=== PATIENT | female | born 1980 | race Two or more races ===

== ENCOUNTER 2021-06-17 18:38 | Emergency (ER) | payer OTHER ==
[~2021-06-17] VITALS: Ht 154.9 cm; Wt 59.0 kg
[2021-06-17 19:59] VITALS: BP 114/58
== END 2021-06-17 20:00 | disposition home or self-care (01) ==
LOC: ER 18:40
DX: S02.5XXA Fracture of tooth (traumatic), initial encounter for closed fracture (principal); K04.7 Periapical abscess without sinus; F17.210 Nicotine dependence, cigarettes, uncomplicated; X58.XXXA Exposure to other specified factors, initial encounter; Y93.89 Activity, other specified; Y92.89 Other specified places as the place of occurrence of the external cause; Y99.8 Other external cause status

== ENCOUNTER 2022-09-27 09:02 | Emergency (ER) | payer MEDICAID ==
[~2022-09-27] VITALS: Ht 154.9 cm; Wt 69.1 kg
[2022-09-27 09:27] VITALS: BP 122/78
[2022-09-27] MEDS ORDERED: HYDROcodone-ACET 5/325MG TAB PO ONE (10:00)
[2022-09-27] MEDS ORDERED: IBUP800T27 PO (10:12)
== END 2022-09-27 10:23 | disposition home or self-care (01) ==
LOC: ER 09:02
DX: S82.831A Other fracture of upper and lower end of right fibula, initial encounter for closed fracture (principal); F17.210 Nicotine dependence, cigarettes, uncomplicated; Z79.1 Long term (current) use of non-steroidal anti-inflammatories (NSAID); W18.39XA Other fall on same level, initial encounter; Y93.89 Activity, other specified; Y92.89 Other specified places as the place of occurrence of the external cause; Y99.8 Other external cause status
CPT/HCPCS: 29515; 73610